=== PATIENT | female | born 1945 | race Caucasian/White ===

== ENCOUNTER 2024-07-03 16:13 | Inpatient (IN) | payer OTHER, SELFPAY ==
[2024-07-03 11:55] VITALS: BP 130/75
[2024-07-03 12:12] LABS: % Basophils 0.6 % (0-2); % Eosinophils 1.2 % (0-6); % Immature Granulocytes 0.3 % (0-0.5); % Lymphocytes 10.2 % (20.5-51.1); % Monocytes 8.1 % (1.7-9.3); % Neutrophils 79.6 % (42.2-75.2); Absolute Basophils 0.1 10^3/uL (0-0.2); Absolute Eosinophils 0.1 10^3/uL (0-0.7); Absolute Lymphocytes 1.2 10^3/uL (1.2-3.4); Absolute Monocytes 0.9 10^3/uL (0.1-0.6); Absolute Neutrophils 9.2 10^3/uL (1.4-6.5); Hematocrit 40.5 % (37.0-47.0); Mean Corp Hgb Conc. 34.6 g/dL (33.0-37.0); Mean Corpuscular Hgb 29.4 pg (27.0-31.0); Mean Corpuscular Volume 85.1 fL (81.0-99.0); Mean Platelet Volume 9.2 fL (7.4-10.4); Nucleated Red Blood Cells % 0 %; Platelet Count 280 10^3/uL (130-400); Red Blood Cell Count 4.76 10^6/uL (4.20-5.40); Red Cell Dist. Width 13.2 % (11.5-14.5); White Blood Cell Count 11.6 10^3/uL (4.8-10.8)
[2024-07-03 12:31] LABS: ALT (SGPT) 14 U/L (0-35); AST (SGOT) 20 U/L (14-36); Albumin 3.4 g/dl (3.5-5.0); Alkaline Phosphatase 64 U/L (38-126); Blood Urea Nitrogen 25 mg/dl (7-17); Calcium 8.7 mg/dl (8.4-10.2); Carbon Dioxide 39 mmol/L (22-30); Chloride 94 mmol/L (98-107); Glucose 115 mg/dl (70-99); Potassium 2.4 mmol/L (3.5-5.1); Sodium 139 mmol/L (135-145); Total Bilirubin 0.6 mg/dl (0.2-1.3); Total Protein 6.7 g/dl (6.3-8.2); eGFR > 60.00
--- NOTE | 2024-07-03 13:33 | ED.GENMED ---
History of Present Illness
General
Chief Complaint: Rectal Bleeding
Time Seen by Provider: 07/03/24 13:23
History of Present Illness
History of Present Illness:
79-year-old female presents to the emergency department for evaluation of diarrhea and rectal bleeding for the past 3 to 4 days. Had a similar presentation 3 years ago and was admitted to the hospital for acute colitis. She reports blood when
wiping as well as blood mixed in the toilet bowl, no bleeding in between bowel movements. No nausea or vomiting. Reports mild lower abdominal pain. Not on any anticoagulants.
Past History
Past History
ED Past Medical History: HTN and Other (Kidney stones, Sciatic nerve pain)
ED Past Surgical History: Gynecological (Hysterectomy)
Social History
Tobacco: Smoker
Alcohol: None
Drug: None
Personal:
Living: with family
Employment: Not employed
Family History
Family History: CAD
Review of Systems
Review of Systems
Allergies reviewed?: Yes
All Other Systems: ROS reviewed and negative except as documented in HPI and ROS
Phy Exam
Physical Exam
Physical Exam:
GEN: Well appearing, NAD, WDWN
HEENT: Oral mucosa moist, no scleral icterus
Cardiac: Regular rate and rhythm
Lung: No respiratory distress, no tachypnea
Abdomen: Soft, mild left lower quadrant tenderness, no rigidity or peritoneal signs
MSK: No gross deformity or injuries
Skin: Good color, no pallor or jaundice, no rashes
Neuro: AO x3, moves all extremities freely
Psych: Calm, cooperative
Course
Orders/Labs/Results
Orders:
Orders
07/03/24 12:02
Complete Blood Count/With Diff Urgent
Comprehensive Metabolic Panel Urgent
Magnesium Urgent
Comment: ADD ON
07/03/24 13:12
Add On- LAB Urgent
Tests Added?: magnesium
07/03/24 13:13
Electrocardiogram (*1) Urgent
Reason for Study: Other
Other Reason for Exam: hypokalemia
EKG- Treatment ONCE
07/03/24 13:32
CT Abd/Pel (IV only)-DH only Urgent
Comment:
Reason For Exam: lower abd pain/rectal bleeding
Magnesium Sulfate 2 Gram/50 ml [Magnesium Sulfate] 2 gram in 50 ml IV NOW
Potassium Chloride [KCl] 40 meq PO NOW STA
07/03/24 13:35
Potassium Chloride [KCl] 40 meq Dextrose 5%/Water 250 ml [D5w] 250 ml IV NOW
07/03/24 13:56
Lactic Acid Urgent
07/03/24 15:12
C DIFF [C difficile Antigen & Toxins] Urgent
LAURENCE Source: Feces/Stool
Specimen Description:
Stool Culture Urgent
LAURENCE Source: Feces/Stool
Specimen Description:
Piperacillin/Tazo 3.375 Gram [Zosyn] 3.375 gram in 50 ml IV NOW
07/03/24 15:39
Admit/Transfer Patient As Directed
Co-Sign Provider:
Level of Care: Inpatient admission
Assign to:: Medical/Surgical
Physician / Group: shubham
Diagnosis: acute infectious colitis
Reason for Hospitalization: acute infectious colitis
Expected length of stay greater than two midnights?: Yes
ELOS- Estimated Length of Stay in days: 2
I certify the patient meets the requirements for IP care: Yes
PRN Pain Medication Management As Directed
May give lesser potent ordered pain med per pt: Yes
preference::
Protocol:: Medication orders for pain may be administered in a
manner that supports deferring to patient preference
when the pt is:
- Requesting an ordered lesser potent pain medication.
Least to most potent pain medications are defined
as: acetaminophen < NSAID < tramadol < opioids
(morphine, oxycodone, hydromorphone).
- Requesting a lesser dose of the same medication IF
ORDERED.
- Requesting a less intrusive route of administration
if both routes are prescribed by the provider (PO <
IV).
07/03/24 15:40
Code Status As Directed
Resuscitation Status: Full Code
07/03/24 15:42
Norovirus by PCR Urgent
LAURENCE Source: Feces/Stool
Specimen Description:
Abnormal Lab Results
07/03/24
12:02
WBC 11.6 H 10^3/uL
(4.8-10.8)
Absolute Neuts (auto) 9.2 H 10^3/uL
(1.4-6.5)
Absolute Monos (auto) 0.9 H 10^3/uL
(0.1-0.6)
Neutrophils % 79.6 H %
(42.2-75.2)
Lymphocytes % 10.2 L %
(20.5-51.1)
Potassium 2.4 L* mmol/L
(3.5-5.1)
Chloride 94 L mmol/L
(98-107)
Carbon Dioxide 39 H mmol/L
(22-30)
BUN 25 H mg/dl
(7-17)
Glucose 115 H mg/dl
(70-99)
Albumin 3.4 L g/dl
(3.5-5.0)
07/03/24 12:02
07/03/24 12:02
Vital Signs
Initial and Last Documented VS:
Initial Vital Signs
Temp Pulse Resp BP Pulse Ox
98.2 F 82 16 130/75 96
07/03/24 11:55 07/03/24 11:55 07/03/24 11:55 07/03/24 11:55 07/03/24 11:55
Last Documented Vital Signs
Temp Pulse Resp BP Pulse Ox
98.2 F 65 24 139/58 92
07/03/24 11:55 07/03/24 17:45 07/03/24 17:45 07/03/24 14:00 07/03/24 15:15
MDM/Problems Addressed
MDM/Problems Addressed:
Imaging reveals acute colitis. Past history of infectious colitis. Will order for stool studies however patient not having any active diarrhea. Lactic acid low which essentially rules out ischemic colitis. Will admit to the inpatient hospitalist
service for further management
*Critical Care Note
Total Time (30-74mins, 75-104mins- exclusive of procedures): Not Applicable
ED Attending Note
-
Portions of this chart may have been created with voice recognition software.� Occasional wrong word or��sound alike� substitutions may have occurred due to the inherent limitations of voice recognition software.
Discharge Plan
Departure
Patient Disposition: Admit
Date of Disposition: 07/03/24
Time of Disposition: 15:22
Admit to: Med/Surg
Presentation/result/management discussed w/ accepting MD/DO: Hospitalist
Discharge Problem:
Colitis, Acute hypokalemia
Interventions
Interventions:
*Risk Screen - Suicide Last Done: 07/03/24 11:57
*General Assessment Last Done: 07/03/24 13:50
*Neglect/Abuse Screening Last Done: 07/03/24 11:57
ED- Fall Risk Assessment Last Done: 07/03/24 13:50
*ED COVID-19 Vaccine History Last Done: 07/03/24 13:50
*Nursing Disposition Last Done: 07/03/24 18:01
MX-Rogcxj-Uqpnprkzwx Assessment Last Done: 07/03/24 13:50
ED- Cardiac Assessment Last Done: 07/03/24 13:50
ED- Pulmonary Assessment Last Done: 07/03/24 13:50
Discharge Date and Time
Discharge Date/Time: 07/03/24 18:01
[2024-07-03 13:45] LABS: Magnesium 2.1 mg/dl (1.6-2.3)
[2024-07-03 13:52] VITALS: BP 123/64
[2024-07-03 14:00] VITALS: BP 139/58
[2024-07-03] MEDS: KCL 270 MEQ IV (14:34)
[2024-07-03] MEDS: MAGNESIUM SULFATE 50 IV (14:34)
[2024-07-03] MEDS: KCL 40 MEQ PO (15:23)
[2024-07-03] MEDS: ZOSYN 50 IV ×2 (15:23→22:09)
--- NOTE | 2024-07-03 15:42 | HPS.HSE ---
Family Physician
-
Family Physician: Igor Hanna
Chief Complaint
-
bloody diarrhea
History of Present Illness
79-year-old female past medical history of hemorrhoids, hypertension, kidney stones, presenting for diarrhea and rectal bleeding over the past 3 to 4 days. He had similar presentation when he was admitted 3 years ago for acute colitis. She reports
blood when wiping as well as blood mixed in the toilet bowl. No nausea or vomiting. She has mild lower abdominal pain. Denies fevers or chills. Per son had some nausea and vomiting did not have diarrhea. She denies eating any outside food or
recent travel.
Denies chest pain or shortness of breath.
She smokes 9 cigarettes/day. Denies alcohol.
Medical History
Past Medical History
Past Medical History: Reports Other (hemorrhoids, hypertension, kidney stones)
Past Surgical History: Reports None
Social History
Tobacco: Smoker
Alcohol: None
Drug: None
Family History
Family History: Not pertinent
Allergies / Home Medications
Allergies reflects when Allergies were last updated in [email or web address].
Home Medications with original date entered in [email or web address]
Allergy/Medication List:
Allergies
Allergy/AdvReac Type Severity Reaction Status Date / Time
No Known Allergies Allergy Verified 09/04/20 12:11
Home Medications
cholecalciferol (vitamin D3) 25 mcg (1,000 unit) tablet 1,000 units PO DAILY@1200 Supplement 09/04/20
cyanocobalamin (vitamin B-12) 1,000 mcg tablet 1,000 mcg PO DAILY@1200 Supplement 09/04/20
vitamin E (dl, acetate) 180 mg (400 unit) capsule 400 units PO DAILY Supplement 09/04/20
ascorbic acid (vitamin C) 500 mg tablet (Vitamin C) 500 mg PO DAILY 07/03/24
omega 8-izj-lfl-fish oil 1,000 mg (120 mg-180 mg) capsule (Fish Oil) 1 cap PO DAILY 07/03/24
therapeutic multivitamin 1 tab PO DAILY 07/03/24
valsartan 320 mg-hydrochlorothiazide 12.5 mg tablet 1 tab PO DAILY 07/03/24
Review of Systems
-
History Source: Patient
A 12 point ROS was completed and negative except as noted: Yes
Constitutional: Reports No Symptoms
EENT: Reports No Symptoms
Respiratory: Reports No Symptoms
Cardiac: Reports No Symptoms
Abdomen/GI: Reports See HPI
: Reports No Symptoms
Musculoskeletal: Reports No Symptoms
Skin: Reports No Symptoms
Neurological: Reports No Symptoms
Endocrine: Reports No Symptoms
Hematologic/Lymphatic: Reports No Symptoms
Psych: Reports No Symptoms
Physical Exam
Vital Signs
Vital Signs
Temp Pulse Resp BP Pulse Ox
98.2 F 69 31 139/58 95
07/03/24 11:55 07/03/24 14:00 07/03/24 14:00 07/03/24 14:00 07/03/24 14:00
Physical Exam
General: Well Developed, Well Nourished and No Apparent Distress
HEENT: NormoCephalic, Moist mucous membranes and Atraumatic
Respiratory: Clear
Cardiac: S1/S2 and Regular Rhythm; No Murmur or Rub
GI: Soft, Non Distended, Normal Bowel Sounds and Tender (diffusely ); No Organomegaly
Rectal: Deferred by Provider
Musculoskeletal: No Clubbing, No Cyanosis and No Edema
Skin: No Rash
Neuro: Nonfocal/grossly intact
Laboratory Results
-
07/03/24 12:02
07/03/24 12:02
Laboratory Results
Lactic Acid 1.0 mmol/L (0.7-2.0) 07/03/24 13:56
Total Bilirubin 0.6 mg/dl (0.2-1.3) 07/03/24 12:02
AST 20 U/L (14-36) 07/03/24 12:02
ALT 14 U/L (0-35) 07/03/24 12:02
Alkaline Phosphatase 64 U/L (38-126) 07/03/24 12:02
Data Reviewed
-
Lab Data: Labs Reviewed by me
Old Records: Reviewed
Impression/Plan
-
IMPRESSION:
PLAN:
# Acute infectious colitis with rectal bleeding
-CT abdomen pelvis shows acute uncomplicated left-sided colitis
-Check stool culture, norovirus, C. difficile
-N.p.o.
-IV fluids
-Zosyn
# Hypokalemia secondary to GI losses
-Replete potassium
-Check magnesium
History of hemorrhoids
Essential hypertension
-Hold valsartan/hydrochlorothiazide
History of kidney stones
Active smoker
-Smokes 9 cigarettes/day
Full code
DVT prophylaxis�SCDs
Clear liquid diet
[2024-07-03 18:18] VITALS: BP 140/69
[2024-07-03 18:19] VITALS: BMI 27.2
--- NOTE | 2024-07-03 18:43 | PTCARENOTE ---
Pt arrived to floor via stretcher. Ambulated without assistance to bed. Potassium Chloride 40meq IV infusion completed. NSS @ 100 ml/hr through right AC #20. AAOx3. Denying pain. Pt has produced a bowel movement for sample.
[2024-07-03] MEDS: NSS 1000 IV (18:46)
[2024-07-03 23:00] VITALS: BP 139/63
[2024-07-03] MEDS: NSS with KCL 40 MEQ 1000 IV (23:10)
[2024-07-04] MEDS: ZOSYN 50 IV ×3 (03:37→15:02)
[2024-07-04 07:41] VITALS: BP 152/72
[2024-07-04 07:42] LABS: % Basophils 0.7 % (0-2); % Eosinophils 2.6 % (0-6); % Immature Granulocytes 0.5 % (0-0.5); % Lymphocytes 12.2 % (20.5-51.1); % Monocytes 7.8 % (1.7-9.3); % Neutrophils 76.2 % (42.2-75.2); Absolute Basophils 0.1 10^3/uL (0-0.2); Absolute Eosinophils 0.3 10^3/uL (0-0.7); Absolute Immature Granulocytes 0.1 10^3/uL (0-0.05); Absolute Lymphocytes 1.3 10^3/uL (1.2-3.4); Absolute Monocytes 0.8 10^3/uL (0.1-0.6); Absolute Neutrophils 8.3 10^3/uL (1.4-6.5); Hematocrit 37.6 % (37.0-47.0); Hemoglobin 12.4 g/dL (12.0-16.0); Mean Corpuscular Hgb 29.1 pg (27.0-31.0); Mean Corpuscular Volume 88.3 fL (81.0-99.0); Mean Platelet Volume 9.4 fL (7.4-10.4); Nucleated Red Blood Cells % 0 %; Platelet Count 269 10^3/uL (130-400); Red Blood Cell Count 4.26 10^6/uL (4.20-5.40); Red Cell Dist. Width 13.5 % (11.5-14.5); White Blood Cell Count 10.8 10^3/uL (4.8-10.8)
[2024-07-04 07:59] LABS: ALT (SGPT) 10 U/L (0-35); AST (SGOT) 14 U/L (14-36); Albumin 2.7 g/dl (3.5-5.0); Alkaline Phosphatase 57 U/L (38-126); Blood Urea Nitrogen 21 mg/dl (7-17); Carbon Dioxide 35 mmol/L (22-30); Chloride 104 mmol/L (98-107); Estimated Creatinine Clearance 62 ml/min; Glucose 107 mg/dl (70-99); Potassium 2.8 mmol/L (3.5-5.1); Sodium 141 mmol/L (135-145); Total Bilirubin 0.5 mg/dl (0.2-1.3); Total Protein 5.5 g/dl (6.3-8.2); eGFR > 60.00
[2024-07-04] MEDS: THERAGRAN 1 TABLET PO (08:22)
[2024-07-04] MEDS: VITAMIN C 500 MG PO (08:22)
[2024-07-04] MEDS: VITAMIN E 400 UNITS PO (08:23)
--- NOTE | 2024-07-04 08:37 | W.PN.HOSP.TC ---
Addendum entered and electronically signed by Venkat Thomason MD 07/05/24 00:00:
Attending Addendum-
I saw and evaluated the patient. I reviewed the resident�s note and agree with findings and plan as documented in the resident�s note. Sub: Has had loose stool unclear of color. mild nausea no abd pain. denies fevers chills. Full 12 point ROS
reviewed and negative except as documented Exam: Vitals reviewed in chart GEN-NAD heart RRR lungs clear abd soft LE no edema
Plan:
# Acute probable infectious colitis with rectal bleeding
- CT abdomen pelvis shows acute uncomplicated left-sided colitis
- stool culture-P, norovirus-neg,
- C. difficile ag pos tox neg
- c/s ID
- start vanco PO as still could be c diff related depite neg toxin
- start cld
- cont IV fluids
- DC Zosyn
# Hypokalemia secondary to GI losses
-Replete potassium aggressively
- repeat BMP in 4 hours
#History of hemorrhoids
#Essential hypertension
- restart valsartan
- dc hydrochlorothiazide
#History of kidney stones
# Active smoker
-Smokes 9 cigarettes/day
- counselled re quitting
Full code
DVT prophylaxis�SCDs
Time spent coordinating care, review of plan of care with resident, personally reviewed records in EMR, med rec, consults, notes, labs, radiology, d/w nursing ID and son � 59 mins
Original Note:
Today's Communication/Plan
-
Continue to monitor patient's potassium levels. Continue Abx. Continue with Clear Liquid Diet
Assessment / Plan
Assessment / Plan
Assessment:
79 yo woman with a past medical history of hemorrhoids, hypertension, tobacco abuse, and kidney stones presented to the ED for recent diarrhea and rectal bleeding over the past few days. Patient was diagnosed with Acute Colitis after undergoing CT
Abd/Pelvis and was started on antibiotics. Patient was also found to be hypokalemic so was started on repletion therapy.
Plan:
# Acute infectious colitis with rectal bleeding
-CT abdomen pelvis shows acute uncomplicated left-sided colitis
-Awaiting stool cultures for, norovirus, C. difficile
-Clear liquid diet for now
-Continue on Zosyn
-IV fluids if patient becomes dehydrated
-Zofran as needed for nausea
# Hypokalemia secondary to GI losses
-Replete potassium
-Dropped to 2.8
-Stopped Valsartan/Hydrochlorothiazide
-Mag 2.1
History of hemorrhoids
Essential hypertension
-Restarted Valsartan 325mg
-Continue to monitor blood pressure
History of kidney stones
-Keep patient hydrated
Active smoker
-Smokes 9 cigarettes/day
-Counseled patient about smoking cessation
-Started her on Nicoderm
Full code
DVT prophylaxis�SCDs
Clear liquid diet
Anticipated Discharge: Within 24 hours
Subjective/Interval History
-
Date of Service: July 04, 2024
Patient has been feeling well. Reports feeling much better after being admitted. Does not report any abdominal pain or other symptoms at this time. One reported stool that was liquidy, brown and with some blood tinge.
Objective Data
-
Labs:
Laboratory Results
07/03/24 07/04/24
21:36 06:31
WBC 10.8
Hgb 12.4
Hct 37.6
Plt Count 269
Sodium 141
Potassium 3.0 L 2.8 L
Chloride 104
Carbon Dioxide 35 H
BUN 21 H
Creatinine 0.7
Glucose 107 H
Calcium 8.0 L
Total Bilirubin 0.5
AST 14
ALT 10
Alkaline Phosphatase 57
Vital Signs:
Vital Signs
Temp Pulse Resp BP Pulse Ox
99.0 F 74 14 152/72 93
07/04/24 07:41 07/04/24 07:41 07/04/24 07:41 07/04/24 07:41 07/04/24 07:41
I&O
07/03/24 07/04/24 07/05/24
06:59 06:59 06:59
Intake Total 1200 / 1200
Output Total
Balance 1199 / 1199
Review of Systems
-
History Source: Patient
Constitutional: Denies Weight Loss or Fatigue
EENT: Reports No Symptoms Reported
Respiratory: Denies Cough, Hemoptysis or Trouble Breathing
Cardiac: Denies Chest Pain, Diaphoresis or Palpitations
Abdomen/GI: Reports Bloody Stools; Denies Abdominal Pain, Nausea, Vomiting, Diarrhea or Constipated
Genitourinary: Reports No Symptoms
Musculoskeletal: Reports No Symptoms
Skin: Reports No Symptoms
Neuro: Reports No Symptoms
Endocrine: Reports No Symptoms
Hematologic / Lymphatic: Reports No Symptoms
Allergy / Immunology: Reports No Symptoms
Physical Exam
-
General: Well Developed, Well Nourished, No Apparent Distress and Comfortable
HEENT: Normocephalic and Atraumatic
Respiratory: Clear to Auscultation and Non Labored Respirations
Cardiac: Regular Rhythm and S1/S2
GI: Soft, Nontender, Nondistended and Normal Bowel Sounds
Musculoskeletal: No Clubbing, No Cyanosis and No Edema
Skin: Warm and Dry
Neuro: Awake, Alert, Oriented and AO x 3
Psych: Calm
Data Reviewed
-
CT Scan: Report Reviewed by me, Discussed with Physician and Discussed with Patient
Labs: Labs Reviewed by me, Discussed with Physician, Discussed with Nurse and Discussed with Patient
[2024-07-04] MEDS: KCL 270 MEQ IV (09:01)
--- NOTE | 2024-07-04 10:12 | CM ---
CM following re: discharge planning.
Reviewed pt's chart, met with pt.
Pt is an 79 year old female, admitted with primary dx of Acute infectious colitis with rectal bleeding. Pt reports she feels much better.
Pt reports she lives with 2 sons Tam and Emmanuel in a 2SH, 2 steps to enter, has 3 supportive sons. Pt described herself as independent in all areas [place]. No DME, VN or SNF history. Pt expressed her desire to return back home at discharge with
family support. Pt stated her son will transport home.
PCP: Igor Hanna
Pharmacy: [facility].
D/C plan: home with anticipated no needs. Son to transport.
CM will follow with discharge plan updates as hospitalization progresses
[2024-07-04] MEDS: NICODERM TRANSDERMAL 14 MG TRANSDERM (10:33)
[2024-07-04] MEDS: DIOVAN 320 MG PO (13:13)
[2024-07-04] MEDS: VITAMIN D3 (cholecalciferol) 25 MCG PO (13:15)
[2024-07-04] MEDS: VITAMIN B-12 1000 MCG PO (13:15)
[2024-07-04 14:03] LABS: Blood Urea Nitrogen 21 mg/dl (7-17); Calcium 8.2 mg/dl (8.4-10.2); Carbon Dioxide 33 mmol/L (22-30); Chloride 103 mmol/L (98-107); Estimated Creatinine Clearance 73 ml/min; Glucose 105 mg/dl (70-99); Potassium 3.7 mmol/L (3.5-5.1); Sodium 141 mmol/L (135-145); eGFR > 60.00
[2024-07-04] MEDS: NSS with KCL 40 MEQ 1000 IV ×2 (15:02→23:53)
[2024-07-04 15:06] VITALS: BP 167/73
--- NOTE | 2024-07-04 15:18 | W.PN.UPDATE ---
Update Note
Progress Note Update
Patient's stool culture came back positive for C Diff antigen. Patient started on Oral Vanc 125mg q6hr.
--- NOTE | 2024-07-04 16:42 | CON.ID ---
Consultation
-
Date/Time Consultation Requested: 07/04/2024 1515
Date/Time Consultation Performed: 07/04/2024 1640
Requesting Provider: Dr. Victoria
Performing Provider: Dr. Ricks
Reason for Consultation: Diarrhea; C. difficile antigen positive
Chief Complaint / Past History
History of Present Illness
Lisa العراقي is an 79-year-old female being evaluated at the request of Dr. Tinoco regarding diarrhea. History is obtained from chart review, along with patient interview.
The patient has a significant past medical history only for hypertension and reports that she was in her usual state of health until approximately 2 days ago when she began to have diarrhea. No history of nausea or vomiting, but notes that stool
was loose and mushy and she also noted a small amount of blood in it. She reports that on the first day she had at least 3 episodes of diarrhea. She recalls that approximately 4 years ago she had an episode of colitis and her current
symptomatology made her increasingly concerned of her return of it. Yesterday, she again had liquid stool with some noted blood and gas and bloating. She additionally felt quite weak and ultimately called EMS and was brought to the hospital for
further evaluation. Here, she was noted to have a low-grade leukocytosis. She has not been febrile, though.
She reports no significant restaurant food consumption other than a recent pet Angelina from a local [employer] restaurant. Additionally, she notes that her son recently had a stomach virus starting approximately 6 days prior to admission, but this
symptomatology had completely resolved by the time of the onset of her symptomatology.
At present, she notes some ongoing flatulence, but denies any significant abdominal pain. She also notes that she is quite thirsty. She has noted some diarrhea today which remains somewhat watery, and possibly with some blood.
Past History
Additional Past Medical History:
HTN
Nephrolithiasis
Sciatica
Additional Past Surgical History:
Hysterectomy
Allergy History:
No Known Allergies Allergy (Verified 09/04/20 12:11)
Medications Reviewed: Yes
Social History
Tobacco: Smoker (1/2 pack/day)
Alcohol: None
Drug: None
Personal:
Living: With Family
Employment: Retired
Family History
Family History: Not Pertinent
Review of Systems
Vital Signs
Temp Pulse Resp BP Pulse Ox
98.8 F 77 18 167/73 95
07/04/24 15:06 07/04/24 15:06 07/04/24 15:06 07/04/24 15:06 07/04/24 15:06
Physical Exam
Physical Exam
Constitutional: No Acute Distress, Comfortable and Non-toxic
Eyes: No Conjunctival Hemorrhage and Sclera Anicteric
Oral: No Thrush and No Ulcers
Cardiovascular: S1/S2; Negative S3/S4 or Murmur
Pulmonary: Clear and Non Labored
Gastrointestinal: Soft, Non Tender, Non Distended, Normal Bowel Sounds, No Rebound and No Guarding
Genito-Urinary: Negative Mancini or CVA Tenderness
Extremities: Edema; Negative Cyanosis or Erythema
Skin: Warm and Dry; Negative Rash or Jaundice
Neurological: Awake and Alert
Psychological: Calm
.
Lab / Diagnostic Study Results
07/04/24 06:31
07/04/24 13:28
Abs Immat Gran (auto) 0.1 10^3/uL (0-0.05) H 07/04/24 06:31
Absolute Neuts (auto) 8.3 10^3/uL (1.4-6.5) H 07/04/24 06:31
Absolute Lymphs (auto) 1.3 10^3/uL (1.2-3.4) 07/04/24 06:31
Absolute Monos (auto) 0.8 10^3/uL (0.1-0.6) H 07/04/24 06:31
Absolute Basos (auto) 0.1 10^3/uL (0-0.2) 07/04/24 06:31
Immature Gran % 0.5 % (0-0.5) 07/04/24 06:31
Neutrophils % 76.2 % (42.2-75.2) H 07/04/24 06:31
Lymphocytes % 12.2 % (20.5-51.1) L 07/04/24 06:31
Monocytes % 7.8 % (1.7-9.3) 07/04/24 06:31
Eosinophils % 2.6 % (0-6) 07/04/24 06:31
Basophils % 0.7 % (0-2) 07/04/24 06:31
Lactic Acid 1.0 mmol/L (0.7-2.0) 07/03/24 13:56
Microbiology Results
Micro:
07/03/24 22:52 - Final
Feces/Stool Negative for Norovirus GI and GII.
07/03/24 22:52 C. difficile GDH Antigen & Toxins - Final
Feces/Stool C. difficile antigen positive, toxin negative.
Clostridium difficile present, but toxin not detected.
Patient may be a carrier, colonized with nontoxinogenic
strain or the level of toxin in sample is below detection
limits. This information should be used in conjunction with
the patient's clinical history.
07/03/24 22:52 Salmonella/Shigella Culture - Pending
Feces/Stool Campylobacter Culture - Pending
Shiga Toxin Test - Pending
Imaging:
07/03/2024 CT abdomen/pelvis: There is acute uncomplicated left-sided colitis extending from the splenic flexure through the sigmoid colon. The bowel is without evidence of obstruction, perforation or abscess. Please see full dictation for
additional detail. Film personally viewed.
Assessment / Plan
Diarrhea
Colitis on CT
Hx HTN
Recommendations:
At present, etiology of the underlying colitis is not entirely clear. Although patient is C. difficile antigen positive, we have not detected any toxin. In addition, diarrhea could be from yet other etiologies such as foodborne illness. Her son
is noted to recently have also had GI illness making the possibility of foodborne illness increased.
For now, we will continue with enteral vancomycin on the possibility that this may be C. difficile related, but will await further stool cultures.
Discontinue further Zosyn.
Monitor white count temperature curve.
Follow stool output and consistency.
[2024-07-04] MEDS: FIRVANQ 125 MG PO ×2 (17:37→23:54)
[2024-07-04 22:52] VITALS: BP 111/65
[2024-07-05] MEDS: FIRVANQ 125 MG PO ×4 (06:19→23:07)
[2024-07-05 06:51] LABS: % Basophils 0.9 % (0-2); % Eosinophils 4.9 % (0-6); % Immature Granulocytes 0.5 % (0-0.5); % Lymphocytes 14.4 % (20.5-51.1); % Monocytes 8.4 % (1.7-9.3); % Neutrophils 70.9 % (42.2-75.2); Absolute Basophils 0.1 10^3/uL (0-0.2); Absolute Eosinophils 0.5 10^3/uL (0-0.7); Absolute Immature Granulocytes 0.1 10^3/uL (0-0.05); Absolute Lymphocytes 1.3 10^3/uL (1.2-3.4); Absolute Monocytes 0.8 10^3/uL (0.1-0.6); Absolute Neutrophils 6.5 10^3/uL (1.4-6.5); Hematocrit 36.6 % (37.0-47.0); Mean Corp Hgb Conc. 32.8 g/dL (33.0-37.0); Mean Corpuscular Hgb 28.3 pg (27.0-31.0); Mean Corpuscular Volume 86.3 fL (81.0-99.0); Mean Platelet Volume 9.3 fL (7.4-10.4); Nucleated Red Blood Cells % 0 %; Platelet Count 243 10^3/uL (130-400); Red Blood Cell Count 4.24 10^6/uL (4.20-5.40); Red Cell Dist. Width 13.4 % (11.5-14.5); White Blood Cell Count 9.2 10^3/uL (4.8-10.8)
[2024-07-05 07:13] LABS: Blood Urea Nitrogen 18 mg/dl (7-17); Carbon Dioxide 31 mmol/L (22-30); Chloride 107 mmol/L (98-107); Estimated Creatinine Clearance 73 ml/min; Glucose 96 mg/dl (70-99); Potassium 3.4 mmol/L (3.5-5.1); Sodium 141 mmol/L (135-145); eGFR > 60.00
[2024-07-05 07:50] VITALS: BP 170/75
--- NOTE | 2024-07-05 07:54 | W.PN.HOSP.TC ---
Addendum entered and electronically signed by Venkat Thomason MD 07/05/24 23:05:
Attending Addendum-
I saw and evaluated the patient. I reviewed the resident�s note and agree with findings and plan as documented in the resident�s note. Sub: feels weak and reports bloody stool. denies fevers chills. Full 12 point ROS reviewed and negative except as
documented Exam: Vitals reviewed in chart GEN-NAD heart RRR lungs clear abd soft LE no edema
Plan:
# Acute probable infectious colitis with rectal bleeding
- CT abdomen pelvis shows acute uncomplicated left-sided colitis
- stool culture-P, norovirus-neg,
- C. difficile ag pos tox neg
- apprecaite ID input
- cont vanco PO as still could be c diff related despite neg toxin
- advance diet LRD
- cont IV fluids
- DC'd Zosyn
# Hypokalemia secondary to GI losses
- Replete potassium aggressively
- repeat BMP in am
#History of hemorrhoids
#Essential hypertension
- cont valsartan
- dc hydrochlorothiazide
#History of kidney stones
# Active smoker
-Smokes 9 cigarettes/day
- counselled re quitting
Full code
DVT prophylaxis�SCDs
Dispo DC in am
Time spent coordinating care, review of plan of care with resident, personally reviewed records in EMR, med rec, consults, notes, labs, radiology, d/w nursing � 52 mins
Original Note:
Today's Communication/Plan
-
Continue to monitor patient's bowel movements for blood. Continue antibiotics. Patient's diet to be upgraded to regular diet today from clear liquid diet. Continue to monitor BMP for potassium
Assessment / Plan
Assessment / Plan
Assessment:
79 yo woman with a past medical history of hemorrhoids, hypertension, tobacco abuse, and kidney stones presented to the ED for recent diarrhea and rectal bleeding over the past few days. Patient was diagnosed with Acute Colitis after undergoing CT
Abd/Pelvis and was started on antibiotics. Patient was also found to be hypokalemic so was started on repletion therapy.
Plan:
# Acute infectious colitis with rectal bleeding
-CT abdomen pelvis shows acute uncomplicated left-sided colitis
-Stool cultures showed C. difficile antigen positive, toxin negative
-ID Consulted input appreciated
-Patient started on Oral Vanc
-Zosyn was D/C
-Upgrade to low residue diet
# Hypokalemia secondary to GI losses
-Replete potassium as needed
-Dropped to 2.8-> repleted to 3.7 -> fell to 3.4
-Diarrhea last night most likely caused the fall in potassium levels
-Continue monitoring BMP
-Mag 2.1
History of hemorrhoids
Essential hypertension
-Restarted Valsartan 325mg
-discontinued HCTZ for now
-Continue to monitor blood pressure
History of kidney stones
-Keep patient hydrated
Active smoker
-Smokes 9 cigarettes/day
-Counseled patient about smoking cessation
-Started her on Nicoderm
Full code
DVT prophylaxis�SCDs
Clear liquid diet
Anticipated Discharge: Within 24 hours
Subjective/Interval History
-
Date of Service: July 05, 2024
Patient says that she is feeling well. Reports that she had an incident of diarrhea last night where she did notice some blood. She says she is feeling hungry and would like to try some solid foods today.
Objective Data
-
Labs:
Laboratory Results
07/05/24 07/05/24
06:32 06:54
WBC 9.2 Cancelled
Hgb 12.0 Cancelled
Hct 36.6 L Cancelled
Plt Count 243 Cancelled
Sodium 141 Cancelled
Potassium 3.4 L Cancelled
Chloride 107 Cancelled
Carbon Dioxide 31 H Cancelled
BUN 18 H Cancelled
Creatinine 0.6 Cancelled
Glucose 96 Cancelled
Calcium 8.0 L Cancelled
Total Bilirubin Cancelled
AST Cancelled
ALT Cancelled
Alkaline Phosphatase Cancelled
Vital Signs:
Vital Signs
Temp Pulse Resp BP Pulse Ox
98.9 F 78 16 111/65 93
07/04/24 22:52 07/04/24 22:52 07/04/24 22:52 07/04/24 22:52 07/04/24 22:52
I&O
07/04/24 07/05/24 07/06/24
06:59 06:59 06:59
Intake Total 1200 / 1200 1320 / 1320
Output Total
Balance 1199 / 1199 1320 / 1320
Review of Systems
-
History Source: Patient
Constitutional: Reports No Symptoms
EENT: Reports No Symptoms Reported
Respiratory: Denies Cough or Trouble Breathing
Cardiac: Denies Chest Pain, Diaphoresis, Palpitations or Syncope
Abdomen/GI: Reports Diarrhea and Bloody Stools; Denies Abdominal Pain, Nausea, Vomiting or Constipated
Genitourinary: Reports No Symptoms
Musculoskeletal: Reports No Symptoms
Skin: Reports No Symptoms
Neuro: Reports No Symptoms
Endocrine: Reports No Symptoms
Hematologic / Lymphatic: Reports No Symptoms
Allergy / Immunology: Reports No Symptoms
Physical Exam
-
General: Well Developed, Well Nourished, No Apparent Distress and Comfortable
HEENT: Normocephalic and Atraumatic
Respiratory: Clear to Auscultation and Non Labored Respirations
Cardiac: Regular Rhythm and S1/S2
GI: Soft, Nontender and Nondistended
Musculoskeletal: No Clubbing, No Cyanosis and No Edema
Skin: Warm and Dry
Neuro: Awake, Alert, Oriented and AO x 3
Psych: Calm
Data Reviewed
-
Labs: Labs Reviewed by me, Discussed with Physician, Discussed with Nurse and Discussed with Patient
[2024-07-05] MEDS: NSS with KCL 40 MEQ 1000 IV (08:20)
[2024-07-05] MEDS: KCL 270 MEQ IV ×2 (08:21→17:13)
[2024-07-05] MEDS: DIOVAN 320 MG PO (08:21)
[2024-07-05] MEDS: VITAMIN E 400 UNITS PO (08:22)
[2024-07-05] MEDS: VITAMIN C 500 MG PO (08:22)
[2024-07-05] MEDS: THERAGRAN 1 TABLET PO (08:22)
[2024-07-05] MEDS: NICODERM TRANSDERMAL 14 MG TRANSDERM (08:22)
--- NOTE | 2024-07-05 10:33 | W.PN.ID1 ---
Date of Service
Date of Service: July 05, 2024
Today's Communication
Continue enteral Vanco for today. Await final stool cultures.
Assessment / Plan
Diarrhea
Colitis (on CT)
Hx HTN
Recommendations:
At present, etiology of the underlying colitis is not entirely clear. Although patient is C. difficile antigen positive, we have not detected any toxin.
In addition, diarrhea could be from yet other etiologies such as foodborne illness. Her son is noted to recently have also had GI illness making the possibility of foodborne illness increased.
For now, we will continue with enteral vancomycin on the possibility that this may be C. difficile related, but will await further stool cultures.
Monitor white count temperature curve.
Follow stool output and consistency.
Diet can likely be advanced.3
����������������������������������������������������������
Chief Complaint
-: Other (Diarrhea)
Subjective / Review of Systems
Patient seen and examined. Denies abdominal pain. Denies fevers or chills. Reports stool is becoming more formed.
Vital Signs / Physical Exam
Vital Signs
Vital Signs
Temp Pulse Resp BP Pulse Ox
97.3 F 70 18 170/75 94
07/05/24 07:50 07/05/24 08:21 07/05/24 07:50 07/05/24 08:21 07/05/24 07:50
Physical Exam
Constitutional: No Acute Distress, Comfortable and Non-toxic
Eyes: Sclera Anicteric
Pulmonary: Non Labored
Gastrointestinal: Non Distended
Neurological: Awake and Alert
Psychological: Calm
Objective Data
Lab Data
Lab Results
07/05/24 06:54
Estimated Creat Clear Cancelled 07/05/24 06:54
Lactic Acid 1.0 mmol/L (0.7-2.0) 07/03/24 13:56
Total Bilirubin Cancelled 07/05/24 06:54
AST Cancelled 07/05/24 06:54
ALT Cancelled 07/05/24 06:54
Alkaline Phosphatase Cancelled 07/05/24 06:54
Most recent labs reviewed.
Micro Results:
07/03/24 22:52 Salmonella/Shigella Culture - Preliminary
Feces/Stool Culture in Progress
Campylobacter Culture - Preliminary
Culture in Progress
Shiga Toxin Test - Pending
07/03/24 22:52 - Final
Feces/Stool Negative for Norovirus GI and GII.
07/03/24 22:52 C. difficile GDH Antigen & Toxins - Final
Feces/Stool C. difficile antigen positive, toxin negative.
Clostridium difficile present, but toxin not detected.
Patient may be a carrier, colonized with nontoxinogenic
strain or the level of toxin in sample is below detection
limits. This information should be used in conjunction with
the patient's clinical history.
Imaging:
07/03/2024 CT abdomen/pelvis: There is acute uncomplicated left-sided colitis extending from the splenic flexure through the sigmoid colon. The bowel is without evidence of obstruction, perforation or abscess. Please see full dictation for
additional detail. Film personally viewed.
Care Review
Plan reviewed with: Physician (Resident)
[2024-07-05] MEDS: VITAMIN D3 (cholecalciferol) 25 MCG PO (11:25)
[2024-07-05] MEDS: VITAMIN B-12 1000 MCG PO (11:25)
[2024-07-05 14:02] LABS: Blood Urea Nitrogen 16 mg/dl (7-17); Carbon Dioxide 28 mmol/L (22-30); Chloride 106 mmol/L (98-107); Estimated Creatinine Clearance 73 ml/min; Glucose 138 mg/dl (70-99); Potassium 3.4 mmol/L (3.5-5.1); Sodium 139 mmol/L (135-145); eGFR > 60.00
[2024-07-05 15:22] VITALS: BP 155/85
[2024-07-05 16:55] VITALS: BP 138/81; BMI 28.6
[2024-07-05 23:39] VITALS: BP 157/65
[2024-07-06] MEDS: FIRVANQ 125 MG PO ×4 (06:03→23:03)
[2024-07-06 07:08] LABS: % Eosinophils 7.1 % (0-6); % Immature Granulocytes 0.7 % (0-0.5); % Lymphocytes 17.3 % (20.5-51.1); % Monocytes 9.6 % (1.7-9.3); % Neutrophils 64.3 % (42.2-75.2); Absolute Basophils 0.1 10^3/uL (0-0.2); Absolute Eosinophils 0.5 10^3/uL (0-0.7); Absolute Immature Granulocytes 0.1 10^3/uL (0-0.05); Absolute Lymphocytes 1.3 10^3/uL (1.2-3.4); Absolute Monocytes 0.7 10^3/uL (0.1-0.6); Absolute Neutrophils 4.7 10^3/uL (1.4-6.5); Hematocrit 35.2 % (37.0-47.0); Hemoglobin 11.7 g/dL (12.0-16.0); Mean Corp Hgb Conc. 33.2 g/dL (33.0-37.0); Mean Corpuscular Hgb 28.5 pg (27.0-31.0); Mean Corpuscular Volume 85.9 fL (81.0-99.0); Mean Platelet Volume 9.3 fL (7.4-10.4); Nucleated Red Blood Cells % 0 %; Platelet Count 242 10^3/uL (130-400); Red Cell Dist. Width 13.3 % (11.5-14.5); White Blood Cell Count 7.3 10^3/uL (4.8-10.8)
[2024-07-06 07:15] VITALS: BP 179/72
[2024-07-06 07:28] LABS: Blood Urea Nitrogen 15 mg/dl (7-17); Calcium 8.2 mg/dl (8.4-10.2); Carbon Dioxide 29 mmol/L (22-30); Chloride 107 mmol/L (98-107); Estimated Creatinine Clearance 74 ml/min; Glucose 94 mg/dl (70-99); Potassium 3.5 mmol/L (3.5-5.1); Sodium 139 mmol/L (135-145); eGFR > 60.00
[2024-07-06] MEDS: DIOVAN 320 MG PO (08:00)
[2024-07-06] MEDS: VITAMIN E 400 UNITS PO (08:02)
[2024-07-06] MEDS: THERAGRAN 1 TABLET PO (08:03)
[2024-07-06] MEDS: VITAMIN C 500 MG PO (08:03)
[2024-07-06] MEDS: NICODERM TRANSDERMAL 14 MG TRANSDERM (08:04)
--- NOTE | 2024-07-06 11:26 | W.PN.HOSP.TC ---
Today's Communication/Plan
-
see bold
Assessment / Plan
Assessment / Plan
79 F PMHx of hemorrhoids, hypertension, tobacco abuse, and kidney stones presented to the ED for recent diarrhea and rectal bleeding over the past few days. Patient was diagnosed with Acute Colitis after undergoing CT Abd/Pelvis and was started on
antibiotics. Patient was also found to be hypokalemic so was started on repletion therapy.
Gen: NAD, AAOx3.
Eyes: EOMI, PERRLA, no scleral icterus.
Neck: supple.
CV: RRR, +S1/S2, no m/r/g.
Resp: CTAB, no rales, wheezes, or rhonchi.
Abd: +BS, soft, NT, ND
Skin: No rashes.
Neuro: CN 2-12 intact, non-focal.
Psych: Normal mood and affect.
07/03/24 22:52 Feces/Stool Salmonella/Shigella Culture - Final
No Salmonella, Shigella, Aeromonas or Plesiomonas species
isolated.
07/03/24 22:52 Feces/Stool Campylobacter Culture - Final
No Campylobacter species isolated.
07/03/24 22:52 Feces/Stool - Final
Negative for Norovirus GI and GII.
07/03/24 22:52 Feces/Stool C. difficile GDH Antigen & Toxins - Final
C. difficile antigen positive, toxin negative.
Clostridium difficile present, but toxin not detected.
Patient may be a carrier, colonized with nontoxinogenic
strain or the level of toxin in sample is below detection
limits. This information should be used in conjunction with
the patient's clinical history.
07/03/24 CT A/P w/IV: Acute uncomplicated left-sided colitis, likely of infectious/inflammatory etiology.
Acute infectious colitis with rectal bleeding:
-CT abdomen pelvis shows acute uncomplicated left-sided colitis
-Stool cultures showed C. difficile antigen positive, toxin negative
-cont PO Vanco as per ID
-Zosyn was stopped
-was advanced to LR diet
-further BRBPR this AM, Hb drop is acute blood loss anemia
-downgrade diet to clears, start D5NS @ 75cc/hr, STAT CTA A/P, c/s GI, H/H Q6H
Hypokalemia secondary to GI losses:
-40meq PO K today
-check Mg in AM
Other problems:
Essential HTN: cont Diovan
h/o kidney stones
History of hemorrhoids
Tobacco abuse disorder: Counseled on smoking cessation
FULL/SCDs
Total time spent on today's encounter was 50 minutes which included time spent in counseling the patient/family regarding diagnosis and treatment plan as listed above, goals of care, and symptom management. Case was discussed with nursing staff,
specialists, and care coordinators/case management. All labs and imaging personally reviewed by me. Remainder the time spent in detailed review of previous records, lab data, imaging, and other medical provider documentation.
Anticipated Discharge: 24 - 48 hours
Subjective/Interval History
-
Date of Service: July 06, 2024
Just had rectal bleeding, denies abd pain.
Objective Data
-
Labs:
Laboratory Results
07/06/24 07/06/24
06:53 06:54
WBC 7.3
Hgb 11.7 L
Hct 35.2 L
Plt Count 242
Sodium 139
Potassium 3.5
Chloride 107
Carbon Dioxide 29
BUN 15
Creatinine 0.5 L
Glucose 94
Calcium 8.2 L
Vital Signs:
Vital Signs
Temp Pulse Resp BP Pulse Ox
98.0 F 71 18 179/72 95
07/06/24 07:15 07/06/24 07:15 07/06/24 07:15 07/06/24 07:15 07/06/24 07:15
I&O
07/05/24 07/06/24 07/07/24
06:59 06:59 06:59
Intake Total 1320 / 1320 480 / 480
Balance 1320 / 1320 480 / 480
[2024-07-06] MEDS: KCL 40 MEQ PO (12:05)
--- NOTE | 2024-07-06 12:05 | CON.GI ---
Consultation
-
Date/Time Consultation Performed: 07/06/24
Performing Provider: Luis Espinoza MD
Reason for Consultation: GI bleed
Medical History
Chief Complaint / HPI
Chief Complaint: Rectal bleeding
History of Present Illness:
The patient is an 79-year-old female with past medical history as noted who presents with diarrhea. She was in her usual state of health when provide 2 days she started to have diarrhea, with a small amount of blood mixed in. Upon presentation her
stools were positive for C. difficile antigen though toxin negative, though empirically treated for C. difficile, and had been improving clinically. CT scan initially showed some left-sided colitis with IV contrast though otherwise was
unremarkable. She then had an episode this morning of bright red blood, about 1 cup, as well as last night. This was not associate with any specific abdominal pain, lightheadedness or dizziness. There is no stool associated, just bright red
blood, no clots. Her last colonoscopy was many years ago Dr. Llamas and unremarkable. She had a similar episode around 5 years ago with COVID and likely infectious colitis at that time also.
Past Medical History
Past Medical History: Other (HTN Nephrolithiasis Sciatica)
Past Surgical History: Other (Hysterectomy)
Social History
Tobacco: Smoker
Alcohol: None
Family History
Family History: Reviewed & Not Pertinent
Allergies / Home Medications
Allergy/AdvReac Type Severity Reaction Status Date / Time
No Known Allergies Allergy Verified 09/04/20 12:11
�Medication �Instructions �Recorded
cholecalciferol (vitamin D3) 25 1,000 units PO DAILY@1200 09/04/20
mcg (1,000 unit) tablet Supplement
cyanocobalamin (vitamin B-12) 1,000 mcg PO DAILY@1200 Supplement 09/04/20
1,000 mcg tablet
vitamin E (dl, acetate) 180 mg 400 units PO DAILY Supplement 09/04/20
(400 unit) capsule
ascorbic acid (vitamin C) 500 mg 500 mg PO DAILY Supplement 07/03/24
tablet (Vitamin C)
omega 3-vks-wgh-fish oil 1,000 mg 1 cap PO DAILY Supplement 07/03/24
(120 mg-180 mg) capsule (Fish Oil)
therapeutic multivitamin 1 tab PO DAILY Supplement 07/03/24
valsartan 320 1 tab PO DAILY Blood Pressure 07/03/24
mg-hydrochlorothiazide 12.5 mg
tablet
Review of Systems
-
All other systems: A 12 pt ROS was Negative except as stated above in HPI
Vital Signs
Temp Pulse Resp BP Pulse Ox
98.0 F 71 18 179/72 95
07/06/24 07:15 07/06/24 07:15 07/06/24 07:15 07/06/24 07:15 07/06/24 07:15
Physical Exam
Exam
General: NAD
HEENT: MMM, anicteric, no lymphadenopathy
Heart: Regular, no murmurs
Lungs: CTA bilaterally
Abdomen: normal bowel sounds, soft, no tenderness, no rebound or guarding, no masses, bruits or ascites
Extremeties: no edema
Skin: no rashes
Chaperoned rectal exam showed palpable internal hemorrhoids, though no blood was in the vault or mass.
Results
WBC 7.3 10^3/uL (4.8-10.8) 07/06/24 06:54
Hgb 11.7 g/dL (12.0-16.0) L 07/06/24 06:54
Hct 35.2 % (37.0-47.0) L 07/06/24 06:54
MCV 85.9 fL (81.0-99.0) 07/06/24 06:54
Plt Count 242 10^3/uL (130-400) 07/06/24 06:54
Absolute Neuts (auto) 4.7 10^3/uL (1.4-6.5) 07/06/24 06:54
Sodium 139 mmol/L (135-145) 07/06/24 06:53
Potassium 3.5 mmol/L (3.5-5.1) 07/06/24 06:53
Chloride 107 mmol/L (98-107) 07/06/24 06:53
Carbon Dioxide 29 mmol/L (22-30) 07/06/24 06:53
BUN 15 mg/dl (7-17) 07/06/24 06:53
Creatinine 0.5 mg/dL (0.6-1.0) L 07/06/24 06:53
Calcium 8.2 mg/dl (8.4-10.2) L 07/06/24 06:53
Total Bilirubin Cancelled 07/05/24 06:54
AST Cancelled 07/05/24 06:54
ALT Cancelled 07/05/24 06:54
Alkaline Phosphatase Cancelled 07/05/24 06:54
Diagnostic Image Results:
07/13 CT with IV contrast:
IMPRESSION:
1. Acute uncomplicated left-sided colitis, likely of infectious/inflammatory etiology.
Prior GI Procedures:
EGD:
Colonoscopy:
Assessment / Plan
-
1. Rectal bleeding: Consistent with hemorrhoidal bleeding given exam, amount of blood, hemodynamically stable. Other etiologies including from ongoing colitis, malignancy, diverticular etc. are possible though seem much less likely. If she were
to have recurrent significant large-volume rectal bleeding could consider CT angiogram though we will hold on this for now. Will start Anusol suppositories and continue observation overnight.
-
-
Thank you for consultation and allowing me to participate in the patient's care. Please call the international student advisor GI physician during the after hours with any questions or concerns.
[2024-07-06] MEDS: VITAMIN D3 (cholecalciferol) 25 MCG PO (12:07)
[2024-07-06] MEDS: VITAMIN B-12 1000 MCG PO (12:07)
[2024-07-06] MEDS: D5/0.9% SODIUM CHLORIDE 1000 IV (12:08)
[2024-07-06] MEDS: ANUSOL HC 25 MG RECTAL ×2 (13:00→23:02)
[2024-07-06 15:54] VITALS: BP 154/68
[2024-07-06 18:30] LABS: Hemoglobin 11.7 g/dL (12.0-16.0)
[2024-07-06 23:14] VITALS: BP 119/79
[2024-07-07 00:41] LABS: Hemoglobin 12.6 g/dL (12.0-16.0)
[2024-07-07] MEDS: D5/0.9% SODIUM CHLORIDE 1000 IV ×2 (01:15→15:08)
[2024-07-07] MEDS: FIRVANQ 125 MG PO ×3 (05:43→17:16)
[2024-07-07 07:58] VITALS: BP 150/53
[2024-07-07 08:11] LABS: Hemoglobin 11.3 g/dL (12.0-16.0)
[2024-07-07] MEDS: VITAMIN E 400 UNITS PO (08:29)
[2024-07-07] MEDS: VITAMIN C 500 MG PO (08:29)
[2024-07-07] MEDS: THERAGRAN 1 TABLET PO (08:29)
[2024-07-07] MEDS: NICODERM TRANSDERMAL TRANSDERM ×2 (08:29→08:49)
[2024-07-07] MEDS: DIOVAN 320 MG PO (08:29)
[2024-07-07 08:36] LABS: Blood Urea Nitrogen 11 mg/dl (7-17); Carbon Dioxide 29 mmol/L (22-30); Chloride 108 mmol/L (98-107); Estimated Creatinine Clearance 74 ml/min; Glucose 95 mg/dl (70-99); Magnesium 1.8 mg/dl (1.6-2.3); Potassium 3.2 mmol/L (3.5-5.1); Sodium 140 mmol/L (135-145); eGFR > 60.00
--- NOTE | 2024-07-07 10:27 | W.PN.GI.CBS2 ---
Today's Communication / Plan
-
Please see assessment and plan for details.
Assessment / Plan
-
1. Rectal bleeding: Consistent with hemorrhoidal bleeding given exam, amount of blood, hemodynamically stable. Other etiologies including from ongoing colitis, malignancy, diverticular etc. are possible though seem much less likely. Will continue
supportive care, Anusol suppositories for 1 week. Will hold on further workup for now. Will sign off for now, though please call back with any further questions or signs of significant bleeding.
Subjective
Subjective
Date of Service: July 07, 2024
Patient doing okay, 2 small episodes, similar, less than a couple, without lightheadedness or dizziness. Hemoglobin remains stable overnight, no further significant diarrhea.
Objective
Data Reviewed
Laboratory Data:
Laboratory Results
07/07/24 07:26
Laboratory Results
Magnesium 1.8 mg/dl (1.6-2.3) 07/07/24 07:26
Total Bilirubin Cancelled 07/05/24 06:54
AST Cancelled 07/05/24 06:54
ALT Cancelled 07/05/24 06:54
Alkaline Phosphatase Cancelled 07/05/24 06:54
Vital Signs and I&O:
Vital Signs
Temp Pulse Resp BP Pulse Ox
98.3 F 66 18 150/53 97
07/07/24 07:58 07/07/24 07:58 07/07/24 07:58 07/07/24 08:29 07/07/24 07:58
I&O
07/06/24 07/07/24 07/08/24
06:59 06:59 06:59
Intake Total 480 / 480
Output Total 240 / 240
Balance 480 / 480 -240 / -240
Physical Exam
Physical Exam
General: NAD
Abdomen: normal bowel sounds, soft, no tenderness, no masses or bruits, no ascites
--- NOTE | 2024-07-07 10:29 | W.PN.HOSP.TC ---
Today's Communication/Plan
-
See bold
Assessment / Plan
Assessment / Plan
79 F PMHx of hemorrhoids, hypertension, tobacco abuse, and kidney stones presented to the ED for recent diarrhea and rectal bleeding over the past few days. Patient was diagnosed with Acute Colitis after undergoing CT Abd/Pelvis and was started on
antibiotics. Patient was also found to be hypokalemic so was started on repletion therapy.
Gen: NAD, AAOx3.
Eyes: EOMI, PERRLA, no scleral icterus.
Neck: supple.
CV: Remains RRR, +S1/S2, no m/r/g.
Resp: Remains CTAB, no rales, wheezes, or rhonchi.
Abd: Remains +BS, soft, NT, ND
Skin: No rashes.
Neuro: CN 2-12 intact, non-focal.
Psych: Normal mood and affect.
07/03/24 22:52 Feces/Stool Salmonella/Shigella Culture - Final
No Salmonella, Shigella, Aeromonas or Plesiomonas species
isolated.
07/03/24 22:52 Feces/Stool Campylobacter Culture - Final
No Campylobacter species isolated.
07/03/24 22:52 Feces/Stool - Final
Negative for Norovirus GI and GII.
07/03/24 22:52 Feces/Stool C. difficile GDH Antigen & Toxins - Final
C. difficile antigen positive, toxin negative.
Clostridium difficile present, but toxin not detected.
Patient may be a carrier, colonized with nontoxinogenic
strain or the level of toxin in sample is below detection
limits. This information should be used in conjunction with
the patient's clinical history.
07/03/24 CT A/P w/IV: Acute uncomplicated left-sided colitis, likely of infectious/inflammatory etiology.
Acute infectious colitis with rectal bleeding:
-CT abdomen pelvis shows acute uncomplicated left-sided colitis
-Stool cultures showed C. difficile antigen positive, toxin negative
-cont PO Vanco as per ID
-Zosyn was stopped
-was advanced to LR diet
-07/06/24AM pt had BRBPR. GI saw in c/s and felt bleeding was hemorrhoidal. Dr. Espinoza did not feel CTA A/P was needed. Since yesterday pt has had a few 'cupfuls' of rectal bleeding. Discussed with Dr. Espinoza today.
-Hb stable, can check again 07/08/24AM
Hypokalemia secondary to GI losses:
-40meq PO K again today
-start PO Mg with low normal Mg
Other problems:
Essential HTN: cont Diovan
h/o kidney stones
History of hemorrhoids
Tobacco abuse disorder: Counseled on smoking cessation
FULL/SCDs
Anticipated Discharge: 24 - 48 hours
Subjective/Interval History
-
Date of Service: July 07, 2024
Diarrhea has resolved. Since yesterday pt has had a few 'cupfuls' of rectal bleeding.
Objective Data
-
Labs:
Laboratory Results
07/07/24 07/07/24 07/07/24
00:08 07:26 13:30
Hgb 12.6 11.3 L Pending
Sodium 140
Potassium 3.2 L
Chloride 108 H
Carbon Dioxide 29
BUN 11
Creatinine 0.5 L
Glucose 95
Calcium 8.0 L
07/07/24
18:00
Hgb Pending
Sodium
Potassium
Chloride
Carbon Dioxide
BUN
Creatinine
Glucose
Calcium
Vital Signs:
Vital Signs
Temp Pulse Resp BP Pulse Ox
98.3 F 66 18 150/53 97
07/07/24 07:58 07/07/24 07:58 07/07/24 07:58 07/07/24 08:29 07/07/24 07:58
I&O
07/06/24 07/07/24 07/08/24
06:59 06:59 06:59
Intake Total 480 / 480
Output Total 240 / 240
Balance 480 / 480 -240 / -240
[2024-07-07] MEDS: KCL 40 MEQ PO (10:41)
[2024-07-07] MEDS: MAGNESIUM OXIDE 500 MG PO ×2 (10:42→21:00)
[2024-07-07] MEDS: VITAMIN D3 (cholecalciferol) 25 MCG PO (11:26)
[2024-07-07] MEDS: VITAMIN B-12 1000 MCG PO (11:26)
[2024-07-07 15:02] VITALS: BP 141/107
--- NOTE | 2024-07-07 15:58 | CM ---
CM reviewed chart, patient seen bedside. Patient reports no needs at this time, reports she may be discharged tomorrow. Patient declining VN services, reports she lives with her two sons who are supportive. CM will continue to follow for all
discharge planning needs.
Plan; home with family when stable.
[2024-07-07] MEDS: ANUSOL HC 25 MG RECTAL (21:30)
[2024-07-07 23:06] VITALS: BP 154/77
[2024-07-08] MEDS: FIRVANQ 125 MG PO ×5 (00:02→23:11)
[2024-07-08] MEDS: D5/0.9% SODIUM CHLORIDE 1000 IV (05:32)
[2024-07-08] MEDS: NICODERM TRANSDERMAL TRANSDERM (07:32)
[2024-07-08] MEDS: MAGNESIUM OXIDE 500 MG PO ×2 (07:32→19:59)
[2024-07-08] MEDS: VITAMIN E 400 UNITS PO (07:32)
[2024-07-08] MEDS: VITAMIN C 500 MG PO (07:32)
[2024-07-08] MEDS: DIOVAN 320 MG PO (07:32)
[2024-07-08] MEDS: THERAGRAN 1 TABLET PO (07:32)
[2024-07-08 07:35] VITALS: BP 168/69
[2024-07-08 08:00] LABS: Hematocrit 31.8 % (37.0-47.0); Hemoglobin 11.1 g/dL (12.0-16.0); Mean Corp Hgb Conc. 34.9 g/dL (33.0-37.0); Mean Corpuscular Hgb 29.5 pg (27.0-31.0); Mean Corpuscular Volume 84.6 fL (81.0-99.0); Mean Platelet Volume 9.1 fL (7.4-10.4); Platelet Count 254 10^3/uL (130-400); Red Blood Cell Count 3.76 10^6/uL (4.20-5.40); Red Cell Dist. Width 13.3 % (11.5-14.5); White Blood Cell Count 9.2 10^3/uL (4.8-10.8)
[2024-07-08 08:43] LABS: Blood Urea Nitrogen 12 mg/dl (7-17); Calcium 7.8 mg/dl (8.4-10.2); Carbon Dioxide 29 mmol/L (22-30); Chloride 107 mmol/L (98-107); Estimated Creatinine Clearance 74 ml/min; Glucose 102 mg/dl (70-99); Potassium 3.1 mmol/L (3.5-5.1); Sodium 139 mmol/L (135-145); eGFR > 60.00
--- NOTE | 2024-07-08 09:44 | W.PN.HOSP.TC ---
Today's Communication/Plan
-
Patient to continue low residue diet and abx. Will check BMP again in afternoon for Potassium.
Assessment / Plan
Assessment / Plan
Assessment:
79 yo woman with a past medical history of hemorrhoids, hypertension, tobacco abuse, and kidney stones presented to the ED for recent diarrhea and rectal bleeding. Patient was diagnosed with Acute Colitis after undergoing CT Abd/Pelvis and was
started on antibiotics. Patient was also found to be hypokalemic so was started on repletion therapy.
Plan:
# Acute infectious colitis with rectal bleeding
-CT abdomen pelvis shows acute uncomplicated left-sided colitis
-Stool cultures showed C. difficile antigen positive, toxin negative
-Zosyn was D/C
-ID Consulted input appreciated
-Patient Oral Vanc (day 5)
-Upgrade to low residue diet
-Salmonella/Shigella Culture - Final
���No Salmonella, Shigella, Aeromonas or Plesiomonas species
���isolated.
-Campylobacter Culture - Final
���No Campylobacter species isolated.
-Shiga Toxin Test - Pending
-BRBPR on 07/06
-GI input appreciated
-Hemorrhoid found to be most likely cause of rectal bleeding
-Hb has been stable (11.1 today)
-Anusol Suppositories for 1 week
-discontinued D5/NSS IVF
# Hypokalemia secondary to GI losses
-Replete potassium as needed
-3.5 -> 3.2 -> 3.1 today
-Continue monitoring BMP
-Mag 1.8 yesterday, remaining stable
-On Magnesium Oxide 500mg BID
# History of hemorrhoids
Essential hypertension
-Restarted Valsartan 325mg
-discontinued HCTZ for now
-Continue to monitor blood pressure
History of kidney stones
-Keep patient hydrated
Active smoker
-Smokes 9 cigarettes/day
-Counseled patient about smoking cessation
-On Nicoderm
Full code
DVT prophylaxis�SCDs
Low Residue Diet
Anticipated Discharge: Within 24 hours
Subjective/Interval History
-
Date of Service: July 08, 2024
Patient has been feeling well. Reports that she had some soft bowel movements yesterday but it had much less blood than before. Continues to feel well and has been tolerating her low residue diet.
Objective Data
-
Labs:
Laboratory Results
07/08/24
07:35
WBC 9.2
Hgb 11.1 L
Hct 31.8 L
Plt Count 254
Sodium 139
Potassium 3.1 L
Chloride 107
Carbon Dioxide 29
BUN 12
Creatinine 0.6
Glucose 102 H
Calcium 7.8 L
Vital Signs:
Vital Signs
Temp Pulse Resp BP Pulse Ox
98.4 F 69 20 168/69 96
07/08/24 07:35 07/08/24 07:35 07/08/24 07:35 07/08/24 07:35 07/08/24 07:35
I&O
07/07/24 07/08/24 07/09/24
06:59 06:59 06:59
Intake Total 1320 / 1320
Output Total 240 / 240 4 / 4
Balance -240 / -240 1316 / 1316
Review of Systems
-
History Source: Patient
Constitutional: Reports No Symptoms
Respiratory: Denies Cough or Trouble Breathing
Cardiac: Denies Chest Pain, Diaphoresis, Palpitations or Syncope
Abdomen/GI: Reports Diarrhea and Bloody Stools; Denies Abdominal Pain, Nausea, Vomiting or Constipated
Skin: Reports No Symptoms
Neuro: Reports No Symptoms
Endocrine: Reports No Symptoms
Hematologic / Lymphatic: Reports No Symptoms
Allergy / Immunology: Reports No Symptoms
Physical Exam
-
General: Well Developed, Well Nourished, No Apparent Distress and Comfortable
HEENT: Normocephalic, Atraumatic and Moist Mucous Membranes
Respiratory: Clear to Auscultation and Non Labored Respirations
Cardiac: Regular Rhythm and S1/S2
GI: Soft, Nontender, Nondistended and Normal Bowel Sounds
Musculoskeletal: No Clubbing, No Cyanosis and No Edema
Neuro: Awake, Alert, Oriented, AO x 3 and No Motor Deficits
Psych: Calm
Data Reviewed
-
Labs: Labs Reviewed by me, Discussed with Physician, Discussed with Nurse and Discussed with Patient
[2024-07-08] MEDS: KCL 40 MEQ PO ×2 (10:01→17:06)
[2024-07-08] MEDS: VITAMIN B-12 1000 MCG PO (11:01)
[2024-07-08] MEDS: VITAMIN D3 (cholecalciferol) 25 MCG PO (11:01)
--- NOTE | 2024-07-08 11:37 | CM ---
CM reviewed chart, patient seen bedside, reports no needs to CM at this time. IMM reviewed verbally, provided with copy, placed in chart. Patients family will provide transportation home when stable. CM will continue to follow for all discharge
planning needs.
Plan; home with family, no needs.
[2024-07-08 14:39] LABS: Blood Urea Nitrogen 11 mg/dl (7-17); Calcium 8.1 mg/dl (8.4-10.2); Carbon Dioxide 27 mmol/L (22-30); Chloride 107 mmol/L (98-107); Estimated Creatinine Clearance 74 ml/min; Glucose 104 mg/dl (70-99); Potassium 3.4 mmol/L (3.5-5.1); Sodium 137 mmol/L (135-145); eGFR > 60.00
[2024-07-08 16:18] VITALS: BP 123/74
[2024-07-08] MEDS: ANUSOL HC 25 MG RECTAL (21:51)
[2024-07-08 23:11] VITALS: BP 150/67
[2024-07-09] MEDS: FIRVANQ 125 MG PO ×2 (05:54→11:19)
[2024-07-09 07:47] VITALS: BP 154/65
[2024-07-09 08:13] LABS: Hematocrit 31.8 % (37.0-47.0); Hemoglobin 10.7 g/dL (12.0-16.0); Mean Corp Hgb Conc. 33.6 g/dL (33.0-37.0); Mean Corpuscular Hgb 28.7 pg (27.0-31.0); Mean Corpuscular Volume 85.3 fL (81.0-99.0); Mean Platelet Volume 9.2 fL (7.4-10.4); Platelet Count 284 10^3/uL (130-400); Red Blood Cell Count 3.73 10^6/uL (4.20-5.40); Red Cell Dist. Width 13.6 % (11.5-14.5); White Blood Cell Count 8.9 10^3/uL (4.8-10.8)
[2024-07-09] MEDS: NICODERM TRANSDERMAL TRANSDERM (08:20)
[2024-07-09] MEDS: MAGNESIUM OXIDE 500 MG PO (08:21)
[2024-07-09] MEDS: VITAMIN E 400 UNITS PO (08:21)
[2024-07-09] MEDS: DIOVAN 320 MG PO (08:21)
[2024-07-09] MEDS: THERAGRAN 1 TABLET PO (08:21)
[2024-07-09] MEDS: VITAMIN C 500 MG PO (08:21)
[2024-07-09 08:57] LABS: Blood Urea Nitrogen 12 mg/dl (7-17); Calcium 7.9 mg/dl (8.4-10.2); Carbon Dioxide 26 mmol/L (22-30); Chloride 108 mmol/L (98-107); Estimated Creatinine Clearance 74 ml/min; Glucose 89 mg/dl (70-99); Potassium 3.4 mmol/L (3.5-5.1); Sodium 139 mmol/L (135-145); eGFR > 60.00
--- NOTE | 2024-07-09 09:00 | W.PN.ID1 ---
Date of Service
Date of Service: July 09, 2024
Today's Communication
Sign off
Assessment / Plan
Diarrhea
Colitis (on CT)
Hx HTN
Recommendations:
Diarrhea resolved.
Complete 14-day course of enteral Vanco.
Little more to offer from a Infectious Diseases standpoint.
Will see again at your request.
����������������������������������������������������������
Chief Complaint
-: Other (Diarrhea)
Subjective / Review of Systems
Review of Systems: No Fever, No Chills and No Diarrhea
Vital Signs / Physical Exam
Vital Signs
Vital Signs
Temp Pulse Resp BP Pulse Ox
99.2 F 76 20 154/65 97
07/09/24 07:47 07/09/24 07:47 07/09/24 07:47 07/09/24 07:47 07/09/24 08:40
Physical Exam
Constitutional: No Acute Distress, Comfortable and Non-toxic
Eyes: Sclera Anicteric
Pulmonary: Non Labored
Gastrointestinal: Non Distended
Neurological: Awake and Alert
Psychological: Calm
Objective Data
Lab Data
Lab Results
07/09/24 06:53
07/09/24 06:52
Estimated Creat Clear 74 ml/min 07/09/24 06:52
Lactic Acid 1.0 mmol/L (0.7-2.0) 07/03/24 13:56
Total Bilirubin Cancelled 07/05/24 06:54
AST Cancelled 07/05/24 06:54
ALT Cancelled 07/05/24 06:54
Alkaline Phosphatase Cancelled 07/05/24 06:54
Most recent labs reviewed.
Micro Results:
07/03/24 22:52 Salmonella/Shigella Culture - Final
Feces/Stool No Salmonella, Shigella, Aeromonas or Plesiomonas species
isolated.
Campylobacter Culture - Final
No Campylobacter species isolated.
Shiga Toxin Test - Final
No E. coli Shiga Toxin 1 or 2 detected.
07/03/24 22:52 - Final
Feces/Stool Negative for Norovirus GI and GII.
07/03/24 22:52 C. difficile GDH Antigen & Toxins - Final
Feces/Stool C. difficile antigen positive, toxin negative.
Clostridium difficile present, but toxin not detected.
Patient may be a carrier, colonized with nontoxinogenic
strain or the level of toxin in sample is below detection
limits. This information should be used in conjunction with
the patient's clinical history.
Imaging:
07/03/2024 CT abdomen/pelvis: There is acute uncomplicated left-sided colitis extending from the splenic flexure through the sigmoid colon. The bowel is without evidence of obstruction, perforation or abscess. Please see full dictation for
additional detail. Film personally viewed.
--- NOTE | 2024-07-09 09:11 | W.PN.HOSP.TC ---
Today's Communication/Plan
-
Patient to be discharged today as she is feeling much stronger than yesterday.
Assessment / Plan
Assessment / Plan
Assessment:
79 yo woman with a past medical history of hemorrhoids, hypertension, tobacco abuse, and kidney stones presented to the ED for recent diarrhea and rectal bleeding. Patient was diagnosed with Acute Colitis after undergoing CT Abd/Pelvis and was
started on antibiotics. Patient was also found to be hypokalemic so was started on repletion therapy. Patient continues to feel well and thinks she is strong enough to go home compared to yesterday.
Plan:
# Acute infectious colitis with rectal bleeding
-CT abdomen pelvis shows acute uncomplicated left-sided colitis
-Stool cultures showed C. difficile antigen positive, toxin negative
-Zosyn was D/C
-ID Consulted input appreciated
-Patient Oral Vanc (day 6)
-Upgrade to low residue diet
-Salmonella/Shigella Culture - Final
���No Salmonella, Shigella, Aeromonas or Plesiomonas species
���isolated.
-Campylobacter Culture - Final
���No Campylobacter species isolated.
-Shiga Toxin Test - Pending
-BRBPR on 07/06
-GI input appreciated
-Hemorrhoid found to be most likely cause of rectal bleeding
-Hb has been stable (11.1 today)
-Anusol Suppositories for 1 week
-discontinued D5/NSS IVF
-ID Consulted input appreciated
-Patient Oral Vanc (day 6)
-Will continue Vanc for 14 days in total
# Hypokalemia secondary to GI losses
-Replete potassium as needed
-3.5 -> 3.2 -> 3.1 today
-Continue monitoring BMP
-Mag 1.8 yesterday, remaining stable
-On Magnesium Oxide 500mg BID
# History of hemorrhoids
Essential hypertension
-Restarted Valsartan 325mg
-discontinued HCTZ for now
-Continue to monitor blood pressure
History of kidney stones
-Keep patient hydrated
Active smoker
-Smokes 9 cigarettes/day
-Counseled patient about smoking cessation
-On Nicoderm
Full code
DVT prophylaxis�SCDs
Low Residue Diet
Anticipated Discharge: Today
Subjective/Interval History
-
Date of Service: July 09, 2024
Patient says that she is feeling much better and energetic from yesterday. Says she still had some soft stools with streaks of blood yesterday. Has no complaints or issues otherwise.
Objective Data
-
Labs:
Laboratory Results
07/09/24 07/09/24
06:52 06:53
WBC 8.9
Hgb 10.7 L
Hct 31.8 L
Plt Count 284
Sodium 139
Potassium 3.4 L
Chloride 108 H
Carbon Dioxide 26
BUN 12
Creatinine 0.5 L
Glucose 89
Calcium 7.9 L
Vital Signs:
Vital Signs
Temp Pulse Resp BP Pulse Ox
99.2 F 76 20 154/65 97
07/09/24 07:47 07/09/24 07:47 07/09/24 07:47 07/09/24 07:47 07/09/24 08:40
I&O
07/08/24 07/09/24 07/10/24
06:59 06:59 06:59
Intake Total 1320 / 1320 1480 / 1480
Output Total / 4
Balance 1316 / 1316 1480 / 1480
Review of Systems
-
History Source: Patient
Constitutional: Reports No Symptoms
EENT: Reports No Symptoms Reported
Respiratory: Denies Cough or Trouble Breathing
Cardiac: Denies Chest Pain, Diaphoresis or Palpitations
Abdomen/GI: Reports Bloody Stools (Blood streaked soft stools); Denies Abdominal Pain, Nausea, Vomiting or Diarrhea
Musculoskeletal: Reports No Symptoms
Skin: Reports No Symptoms
Neuro: Reports No Symptoms
Endocrine: Reports No Symptoms
Hematologic / Lymphatic: Reports No Symptoms
Allergy / Immunology: Reports No Symptoms
Physical Exam
-
General: Well Developed, Well Nourished, No Apparent Distress and Comfortable
HEENT: Normocephalic and Atraumatic
Respiratory: Clear to Auscultation and Non Labored Respirations
Cardiac: Regular Rhythm and S1/S2
GI: Soft, Nontender, Nondistended and Normal Bowel Sounds
Musculoskeletal: No Clubbing, No Cyanosis and No Edema
Skin: Warm
Neuro: Awake, Alert, Oriented and AO x 3
Psych: Calm
Data Reviewed
-
Labs: Labs Reviewed by me, Discussed with Physician, Discussed with Nurse and Discussed with Patient
[2024-07-09] MEDS: KCL 40 MEQ PO (09:40)
--- NOTE | 2024-07-09 10:24 | W.DCSUMMARY ---
Documented by User: Nnamdi Tinoco MD, Resident 07/09/24 14:41
Discharge Summary
Discharge Data
Date of Admission: 07/03/24
Date of Discharge: 07/09/24
-
Pending Results: No
Hospital Course
Discharging Physician : Dr. Mikal Figueroa, Dr. Nnamdi Tinoco
Disposition : Home
Primary care physician : Dr. Igor Hanna
Principal Discharge diagnosis : Acute infectious colitis with rectal bleeding
Chronic Discharge diagnosis : Hypokalemia, Hemorrhoids, Tobacco Use, Hypertension, Kidney stones
Hospital Course : 79 year old female with a past medical history of hypertension, hemorrhoids, colitis, and tobacco use came to the [facility] on due to recent diarrhea and rectal bleeding for the past 3-4 days. She had similar
symptoms 3 years ago and was admitted for acute colitis. She did not have any abdominal pain, nausea or vomiting upon presentation and only reported blood when wiping as well as blood mixed in the toilet bowl. CT scan of the Abdomen and Pelvis
showed acute uncomplicated left sided colitis and she was started on Zosyn, IV fluids and admitted to the hospital. She was also found to be hypokalemia most likely secondary to her diarrhea, and was started on repletion therapy. Her stool cultures
came back positive for C. Diff antigen but negative for C. Diff toxin. Patient was started on oral Vancomycin and Infectious disease was consulted. Patient continue to be treated with oral vancomycin until she felt strong enough to leave the
hospital. She was discharged with a prescription for Oral vancomycin which she will continue for 8 more days as per Infectious Disease and potassium supplements.
Important imaging findings :
CT Abd/Pel (IV only)- Acute uncomplicated left-sided colitis, likely of infectious/inflammatory etiology
Discharge Plan
-
Patient Disposition: Home (Routine Discharge)
Discharge Diagnosis/Procedures: Acute C. difficile colitis
Condition: Good
Diet: Low Residue
Activity: As tolerated
Driving Restrictions: As prior to admission
Bathing Restrictions: None
Blood Work: BMP in a week
Instructions: Bloody stools in adults, C. difficile infection
Referrals:
Igor Hanna MD [Family Provider] -
Additional Discharge Medication Instructions: Follow up with PCP in a week
Take 1 Tablet of Potassium Chloride once a day for 7 days
Check BMP before seeing PCP
Take 1 Tablet of Vancomycin 125mg 4 times a day for 8 days for your infection
Take 1 Tablet of Valsartan 320mg 1 time a day. Follow up with PCP regarding BP control medication.
Take 1 Tablet of Magnesium Oxide 500mg 2 times a day. Check Magnesium levels with BMP and follow up with PCP
Prescriptions:
New
hydrocortisone acetate 25 mg Suppository
25 mg CO HS 6 Days Qty: 6 0RF
magnesium oxide 500 mg magnesium Tablet
500 mg PO BID 30 Days Qty: 60 0RF
potassium chloride 20 mEq tablet extended release
20 meq PO DAILY 7 Days Qty: 7 0RF
valsartan 320 mg tablet
320 mg PO DAILY 30 Days Qty: 30 0RF
vancomycin 125 mg capsule
125 mg PO QID 8 Days Qty: 32 0RF
Continued
cyanocobalamin (vitamin B-12) 1,000 MCG tablet
1,000 mcg PO DAILY@1200
cholecalciferol (vitamin D3) 1,000 UNITS tablet
1,000 units PO DAILY@1200
vitamin E (dl, acetate) 400 UNITS capsule
400 units PO DAILY
therapeutic multivitamin Tablet
1 tab PO DAILY
ascorbic acid (vitamin C) [Vitamin C] 500 mg Tablet
500 mg PO DAILY
omega 5-pmt-cwr-fish oil [Fish Oil] 1,000 (120-180) mg Capsule
1 cap PO DAILY
Discontinued
valsartan-hydrochlorothiazide 320-12.5 mg tablet
1 tab PO DAILY
Discharge Orders:
Discharge Patient (As Directed); Ordered 07/09/24
Ordered By: Nnamdi Tinoco
Discharge Date and Time
Discharge Date/Time: 07/09/24 14:21
Print Language: SENEGALESE

Documented by User: Mikal Figueroa, 07/10/24 09:14
Discharge Summary
Discharge Data
Date of Admission: 07/03/24
Date of Discharge: 07/10/24
Discharge Plan
-
Patient Disposition: Home (Routine Discharge)
Discharge Diagnosis/Procedures: Acute C. difficile colitis
Condition: Good
Diet: Low Residue
Activity: As tolerated
Driving Restrictions: As prior to admission
Bathing Restrictions: None
Blood Work: BMP in a week
Instructions: Bloody stools in adults, C. difficile infection
Referrals:
Igor Hanna MD [Family Provider] -
Additional Discharge Medication Instructions: Follow up with PCP in a week
Take 1 Tablet of Potassium Chloride once a day for 7 days
Check BMP before seeing PCP
Take 1 Tablet of Vancomycin 125mg 4 times a day for 8 days for your infection
Take 1 Tablet of Valsartan 320mg 1 time a day. Follow up with PCP regarding BP control medication.
Take 1 Tablet of Magnesium Oxide 500mg 2 times a day. Check Magnesium levels with BMP and follow up with PCP
Prescriptions:
New
hydrocortisone acetate 25 mg Suppository
25 mg CO HS 6 Days Qty: 6 0RF
magnesium oxide 500 mg magnesium Tablet
500 mg PO BID 30 Days Qty: 60 0RF
potassium chloride 20 mEq tablet extended release
20 meq PO DAILY 7 Days Qty: 7 0RF
valsartan 320 mg tablet
320 mg PO DAILY 30 Days Qty: 30 0RF
vancomycin 125 mg capsule
125 mg PO QID 8 Days Qty: 32 0RF
Continued
cyanocobalamin (vitamin B-12) 1,000 MCG tablet
1,000 mcg PO DAILY@1200
cholecalciferol (vitamin D3) 1,000 UNITS tablet
1,000 units PO DAILY@1200
vitamin E (dl, acetate) 400 UNITS capsule
400 units PO DAILY
therapeutic multivitamin Tablet
1 tab PO DAILY
ascorbic acid (vitamin C) [Vitamin C] 500 mg Tablet
500 mg PO DAILY
omega 7-lys-sem-fish oil [Fish Oil] 1,000 (120-180) mg Capsule
1 cap PO DAILY
Discontinued
valsartan-hydrochlorothiazide 320-12.5 mg tablet
1 tab PO DAILY
Discharge Orders:
Discharge Patient (As Directed); Ordered 07/09/24
Ordered By: Nnamdi Tinoco
Discharge Date and Time
Discharge Date/Time: 07/09/24 14:21
Print Language: SENEGALESE
[2024-07-09] MEDS: VITAMIN D3 (cholecalciferol) 25 MCG PO (11:19)
[2024-07-09] MEDS: VITAMIN B-12 1000 MCG PO (11:19)
[2024-07-09 11:28] VITALS: BP 147/61
--- NOTE | 2024-07-09 12:37 | CM ---
Patient seen at bedside. Patient confirmed IMM and signed form placed on chart. Patient stated family to transport, and she had spoken with them and no VN needed. CM will continue to follow for discharge planning needs.
PLan; home with no needs anticipated.
[2024-07-09] MEDS: FLUAD (65 yr+) 2024-2025 FORMULA 0.5 ML IM (12:40)
== END 2024-07-09 14:21 | disposition home or self-care (01) | DRG 372 ==
LOC: 4 WEST ACU 16:13
PROVIDERS: Emergency Medicine; Internal Medicine; Nurse Practitioner Gerontology; Physician Assistant; Student in an Organized Health Care Education/Training Program; ADMITTING PHYSICIAN Hospitalist; ATTENDING PHYSICIAN Internal Medicine; CONSULT PHYSICIAN Internal Medicine Gastroenterology; CONSULT PHYSICIAN Internal Medicine Infectious Disease; EMERGENCY PHYSICIAN Student in an Organized Health Care Education/Training Program; FAMILY PHYSICIAN Internal Medicine
PROC: 3E02340 Introduction of Influenza Vaccine into Muscle, Percutaneous Approach (ICD-10-PCS; 2024-07-09)
DX: A04.72 Enterocolitis due to Clostridium difficile, not specified as recurrent (principal); D62 Acute posthemorrhagic anemia; I10 Essential (primary) hypertension; I25.10 Atherosclerotic heart disease of native coronary artery without angina pectoris; E87.6 Hypokalemia; F17.210 Nicotine dependence, cigarettes, uncomplicated; K64.8 Other hemorrhoids; Z79.899 Other long term (current) drug therapy; Z23 Encounter for immunization
CPT/HCPCS: 74177; 80048; 80053; 83605; 83735; 84132; 85018; 85025; 85027; 87045; 87046; 87324; 87427; 87449; 87798; 90662; 93005; 96361; 96365; 96366; 96367; 96375; 99285; G0008; Q9967